=== PATIENT | male | born 1945 | race Caucasian/White ===

== ENCOUNTER → 2024-01-20 07:24 | Outpatient (REF) | payer MEDICARE, SELFPAY ==
[2024-01-20 08:44] LABS: PSA, Total - Diagnostic 0.57 ng/ml (0.0-4.0)
== END ==
LOC: REG 07:24
PROVIDERS: ATTENDING PHYSICIAN Specialist
DX: C61 Malignant neoplasm of prostate (principal)
CPT/HCPCS: 36415; 84153

== ENCOUNTER → 2024-02-11 09:22 | Outpatient (REF) | payer MEDICARE, SELFPAY ==
[2024-02-11 10:20] LABS: % Basophils 0.6 % (0-2); % Eosinophils 1.4 % (0-6); % Immature Granulocytes 0.3 % (0-0.5); % Lymphocytes 14.9 % (20.5-51.1); % Monocytes 7.2 % (1.7-9.3); % Neutrophils 75.6 % (42.2-75.2); Absolute Basophils 0.1 10^3/uL (0-0.2); Absolute Eosinophils 0.1 10^3/uL (0-0.7); Absolute Lymphocytes 1.3 10^3/uL (1.2-3.4); Absolute Monocytes 0.6 10^3/uL (0.1-0.6); Absolute Neutrophils 6.7 10^3/uL (1.4-6.5); Hematocrit 39.1 % (39.0-52.0); Hemoglobin 13.6 g/dL (13.0-18.0); Mean Corp Hgb Conc. 34.8 g/dL (33.0-37.0); Mean Corpuscular Hgb 31.4 pg (27.0-31.0); Mean Corpuscular Volume 90.3 fL (80.0-94.0); Mean Platelet Volume 10.2 fL (7.4-10.4); Nucleated Red Blood Cells % 0 % (-); Platelet Count 182 10^3/uL (130-400); Red Blood Cell Count 4.33 10^6/uL (4.70-6.10); Red Cell Dist. Width 13.5 % (11.5-14.5); White Blood Cell Count 8.9 10^3/uL (4.8-10.8)
[2024-02-11 12:24] LABS: TSH Reflex To Free T4 1.32 uIU/ml (0.47-4.68)
[2024-02-11 13:56] LABS: ALT (SGPT) 26 U/L (0-50); AST (SGOT) 33 U/L (17-59); Albumin 4.6 g/dl (3.5-5.0); Alkaline Phosphatase 86 U/L (38-126); Blood Urea Nitrogen 31 mg/dl (9-20); Calcium 9.6 mg/dl (8.4-10.2); Carbon Dioxide 23 mmol/L (22-30); Chloride 103 mmol/L (98-107); Glucose 84 mg/dl (70-99); HDL Cholesterol 63 mg/dl; LDL Cholesterol, Calculated 98 mg/dl; Potassium 4.4 mmol/L (3.5-5.1); Sodium 138 mmol/L (135-145); Total Cholesterol 182 mg/dl (50-199); Total Protein 7.1 g/dl (6.3-8.2); Triglyceride 107 mg/dl (10-149); Very Low Density Lipoprotein 21 mg/dl (0-30); eGFR > 60.00
== END ==
LOC: REG 09:22
PROVIDERS: ATTENDING PHYSICIAN Family Medicine
DX: I10 Essential (primary) hypertension (principal); E78.00 Pure hypercholesterolemia, unspecified; E88.819 Insulin resistance, unspecified; R73.01 Impaired fasting glucose
CPT/HCPCS: 36415; 80053; 80061; 83036; 84443; 85025

== ENCOUNTER 2024-02-23 02:57 | Emergency (ER) | payer MEDICARE, SELFPAY ==
[2024-02-23 02:59] VITALS: BP 158/74
[2024-02-23] MEDS: TORADOL 60 MG IM (04:16)
[2024-02-23 04:25] LABS: % Basophils 0.4 % (0-2); % Eosinophils 1.7 % (0-6); % Immature Granulocytes 0.4 % (0-0.5); % Lymphocytes 11.3 % (20.5-51.1); % Monocytes 7.7 % (1.7-9.3); % Neutrophils 78.5 % (42.2-75.2); Absolute Eosinophils 0.2 10^3/uL (0-0.7); Absolute Lymphocytes 1.1 10^3/uL (1.2-3.4); Absolute Monocytes 0.8 10^3/uL (0.1-0.6); Absolute Neutrophils 7.7 10^3/uL (1.4-6.5); Hematocrit 38.9 % (39.0-52.0); Hemoglobin 13.6 g/dL (13.0-18.0); Mean Corpuscular Hgb 31.7 pg (27.0-31.0); Mean Corpuscular Volume 90.7 fL (80.0-94.0); Mean Platelet Volume 10.4 fL (7.4-10.4); Nucleated Red Blood Cells % 0 % (-); Platelet Count 179 10^3/uL (130-400); Red Blood Cell Count 4.29 10^6/uL (4.70-6.10); Red Cell Dist. Width 13.8 % (11.5-14.5); White Blood Cell Count 9.8 10^3/uL (4.8-10.8)
--- NOTE | 2024-02-23 04:37 | ED.GENMED ---
History of Present Illness
General
Chief Complaint: Swelling
Source: patient, spouse and previous radiology exam (Previous left distal fibula ankle fracture with repair February 22, 2014)
Exam Limitations: none
Time Seen by Provider: 02/23/24 03:29
Nursing documentation reviewed up to this point in time: agreed with
Travel History
Have you had any contact with someone who has COVID-19?: No
Do you have any symptoms of coronavirus? Fever > 100 degrees, chills, cough, shortness of breath, sore throat, loss of taste or smell, muscle aches, or headache?: No
History of Present Illness
History of Present Illness:
This is an 79-year-old gentleman who resides at home with his . He has history of hypertension, hyperlipidemia prior history of left distal fibula fracture with fracture repair with plate and screws by Dr. Muro February 2014.
He complains of left medial ankle pain and swelling that began yesterday afternoon, mild at first but progressive throughout the evening and difficulty sleeping tonight due to pain. No insightful injury, he denies fall nor twisting of his ankle.
No history of similar episodes of pain. He has not taken anything for discomfort. He denies fever nor chills. He denies leg pain or knee pain or foot pain. No weakness nor numbness.
He does endorse eating more seafood recently and consumes beer from time to time.
Past History
Past History
ED Past Medical History: Cancer (Prostate cancer), HTN, Hypercholesterolemia and Other (BPH)
ED Past Surgical History: Orthopedic (Left knee replacement 2012. Left distal fibula repair February [address] Muro.) and Urological (Prostate cancer)
Social History
Tobacco: Non-smoker
Alcohol: Occasional
Personal:
Living: with family
Employment: Retired
Family History
Family History: Other (Noncontributory)
Phy Exam
Physical Exam
Physical Exam:
GENERAL: 79-year-old gentleman appears his stated age, bright and alert, pleasant, appears in no acute distress. is accompanying.
EYE: anicteric
NECK: Supple, nontender, no meningismus, no significant adenopathy.
ENT: oral mucosa is moist.
CARDIAC: Regular rate and rhythm. no murmur.
LUNGS: Clear breath sounds bilaterally, no acute respiratory distress, no wheezes/rales/rhonchi
ABDOMEN: Soft, nondistended, without focal tenderness
NEUROLOGICAL: Alert and oriented x3, no focal neuro deficits.
SKIN: Warm and dry, normal color, skin intact. No rash.
MUSCULOSKELETAL: Left ankle has well-healed old surgical incision lateral aspect. There is mild soft tissue swelling about the ankle with minimal erythema medial distal ankle with moderate local tenderness to palpation medial mid ankle. There is
no tenderness to the foot nor lower leg nor knee. There is full ankle range of motion with increased pain with internal and external rotation. Peripheral pulses are full and equal b/l.
PSYCH: Normal and appropriate interaction.
Scores
Heart Failure Risk
Heart Failure Risk Score: Not Applicable
Course
Orders/Labs/Results
Orders:
Orders
02/23/24 03:37
Ankle, left 3 view CR [CR Ankle - Left Min 3 Views ] Urgent
Comment:
Reason For Exam: nontraumatic pain swelling medial ankle
02/23/24 03:52
Ketorolac [Toradol] 60 mg .ROUTE .STK-MED ONE
02/23/24 04:09
Basic Metabolic Panel Urgent
CRP [C-Reactive Protein] Urgent
Complete Blood Count/With Diff Urgent
Sed Rate [Erythrocyte Sed Rate] Urgent
Uric Acid Urgent
02/23/24 04:16
Ketorolac [Toradol] 60 mg IM NOW STA
Abnormal Lab Results
02/23/24
04:09
RBC 4.29 L 10^6/uL
(4.70-6.10)
Hct 38.9 L %
(39.0-52.0)
MCH 31.7 H pg
(27.0-31.0)
Absolute Neuts (auto) 7.7 H 10^3/uL
(1.4-6.5)
Absolute Lymphs (auto) 1.1 L 10^3/uL
(1.2-3.4)
Absolute Monos (auto) 0.8 H 10^3/uL
(0.1-0.6)
Neutrophils % 78.5 H %
(42.2-75.2)
Lymphocytes % 11.3 L %
(20.5-51.1)
BUN 23 H mg/dl
(9-20)
Glucose 112 H mg/dl
(70-99)
02/23/24 04:09
02/23/24 04:09
Vital Signs
Initial and Last Documented VS:
Initial Vital Signs
Temp Pulse Resp BP Pulse Ox
97.8 F 68 22 158/74 100
02/23/24 02:59 02/23/24 02:59 02/23/24 02:59 02/23/24 02:59 02/23/24 02:59
Last Documented Vital Signs
Temp Pulse Resp BP Pulse Ox
97.8 F 63 16 147/72 96
02/23/24 02:59 02/23/24 05:25 02/23/24 05:25 02/23/24 05:25 02/23/24 05:25
MDM/Problems Addressed
Differential Diagnosis Includes:
Concern for acute inflammatory arthropathy such as gout, pseudogout, other consideration is infectious arthropathy. Tenosynovitis, osteoarthritis flare.
Will check labs including inflammatory markers, uric acid and will check left ankle x-ray.
Will medicate for pain with Toradol.
*Radiology
Radiology exam reviewed: preliminary read by ED provider (Left ankle x-ray reveals prior distal fibula fracture repair with intact plate and screws. Mild to moderate DJD. No fracture.)
*Pulse Oximetry
Patient hypoxic: no
*Critical Care Note
Total Time (30-74mins, 75-104mins- exclusive of procedures): Not Applicable
Update Note
Update Note:
02/23/2024 0505 AM
Patient feeling improved after IM dose of Toradol. Resting comfortably.
Thus far labs are reassuring with normal white blood cell count, normal sed rate of 14, CRP less than 5. Uric acid 5.4. Normal renal function.
Left ankle x-ray reveals prior distal fibular fracture repair with plate and screws that appear intact. Mild to moderate DJD but no evidence of fracture.
I suspect acute arthritic flare, likely osteoarthritis, other consideration is inflammatory arthritis such as gout or pseudogout.
Recommend trial of NSAID, elevation, heat with prompt follow-up with PCP versus orthopedist.
Return precautions discussed including onset of fever, worsening pain etc.
ED Attending Note
-
Portions of this chart may have been created with voice recognition software.� Occasional wrong word or��sound alike� substitutions may have occurred due to the inherent limitations of voice recognition software.
Discharge Plan
Departure
Patient Disposition: Home (Routine Discharge)
Date of Disposition: 02/23/24
Time of Disposition: 05:07
Patient with high blood pressure during this ER visit?: No
Condition: Good
Discharge Problem:
Acute inflammatory arthropathy L ankle
Instructions: Gout (DC), Osteoarthritis (DC)
Prescriptions:
New
diclofenac sodium 75 mg tablet,delayed release (DR/EC)
75 mg PO BID PRN (Reason: pain) Qty: 30 0RF
No Action
finasteride 5 MG tablet
5 mg PO DAILY
cholecalciferol (vitamin D3) 1,000 UNIT capsule
1,000 unit PO DAILY
amlodipine 5 mg Tablet
5 mg PO DAILY
tamsulosin 0.4 mg Capsule
0.4 mg PO DAILY
pravastatin 20 mg Tablet
20 mg PO DAILY
Lumigan 0.01 % Drops
1 drp OPHTHALMIC (EYE) QPM
Metamucil 3.4 gram/5.4 gram Powder
1 tsp PO DAILY
Referrals:
Debra No MD [Family Provider] - Call in 1-3 days for appt
Interventions
Interventions:
*Risk Screen - Suicide Last Done: 02/23/24 02:59
*General Assessment Last Done: 02/23/24 03:22
*Neglect/Abuse Screening Last Done: 02/23/24 02:59
ED- Fall Risk Assessment Last Done: 02/23/24 03:22
*ED COVID-19 Vaccine History Last Done: 02/23/24 03:22
*Nursing Disposition Last Done: 02/23/24 05:25
ED- Cardiac Assessment Last Done: 02/23/24 03:22
ED- Pulmonary Assessment Last Done: 02/23/24 03:22
ED-Skin Assessment Last Done: 02/23/24 03:22
Discharge Date and Time
Discharge Date/Time: 02/23/24 05:25
Print Language: CZECH
[2024-02-23 04:43] LABS: C-Reactive Protein < 5.00 mg/L (0.0-10.00)
[2024-02-23 04:49] LABS: Blood Urea Nitrogen 23 mg/dl (9-20); Calcium 9.6 mg/dl (8.4-10.2); Carbon Dioxide 24 mmol/L (22-30); Chloride 106 mmol/L (98-107); Glucose 112 mg/dl (70-99); Potassium 4.5 mmol/L (3.5-5.1); Sodium 136 mmol/L (135-145); Uric Acid 5.4 mg/dl (3.5-8.5); eGFR > 60.00
[2024-02-23 04:58] LABS: Erythrocyte Sed Rate 14 mm/hour (0-20)
[2024-02-23 05:25] VITALS: BP 147/72
== END 2024-02-23 05:25 | disposition home or self-care (01) ==
LOC: EMR 02:57
PROVIDERS: EMERGENCY PHYSICIAN Emergency Medicine; FAMILY PHYSICIAN Family Medicine
DX: M12.872 Other specific arthropathies, not elsewhere classified, left ankle and foot (principal); M19.072 Primary osteoarthritis, left ankle and foot; M25.572 Pain in left ankle and joints of left foot; M25.472 Effusion, left ankle; R26.2 Difficulty in walking, not elsewhere classified; I10 Essential (primary) hypertension; E78.00 Pure hypercholesterolemia, unspecified; N40.0 Benign prostatic hyperplasia without lower urinary tract symptoms; H40.9 Unspecified glaucoma; Z85.46 Personal history of malignant neoplasm of prostate; Z96.652 Presence of left artificial knee joint
CPT/HCPCS: 99284; 96372; 73610; 80048; 84550; 85025; 85652; 86140

== ENCOUNTER → 2024-04-08 06:55 | Outpatient (REF) | payer MEDICARE, SELFPAY ==
[2024-04-08 08:00] LABS: % Basophils 0.3 % (0-2); % Eosinophils 3.4 % (0-6); % Immature Granulocytes 0.3 % (0-0.5); % Lymphocytes 21.1 % (20.5-51.1); % Monocytes 9.2 % (1.7-9.3); % Neutrophils 65.7 % (42.2-75.2); Absolute Eosinophils 0.2 10^3/uL (0-0.7); Absolute Lymphocytes 1.4 10^3/uL (1.2-3.4); Absolute Monocytes 0.6 10^3/uL (0.1-0.6); Absolute Neutrophils 4.5 10^3/uL (1.4-6.5); Hematocrit 40.4 % (39.0-52.0); Hemoglobin 13.6 g/dL (13.0-18.0); Mean Corp Hgb Conc. 33.7 g/dL (33.0-37.0); Mean Corpuscular Hgb 31.3 pg (27.0-31.0); Mean Corpuscular Volume 93.1 fL (80.0-94.0); Nucleated Red Blood Cells % 0 % (-); Red Blood Cell Count 4.34 10^6/uL (4.70-6.10); Red Cell Dist. Width 13.2 % (11.5-14.5); White Blood Cell Count 6.8 10^3/uL (4.8-10.8)
[2024-04-08 08:07] LABS: Erythrocyte Sed Rate 13 mm/hour (0-20)
[2024-04-08 09:01] LABS: ALT (SGPT) 42 U/L (0-50); AST (SGOT) 46 U/L (17-59); Albumin 4.3 g/dl (3.5-5.0); Alkaline Phosphatase 82 U/L (38-126); Blood Urea Nitrogen 23 mg/dl (9-20); Calcium 9.5 mg/dl (8.4-10.2); Carbon Dioxide 23 mmol/L (22-30); Chloride 103 mmol/L (98-107); Glucose 99 mg/dl (70-99); HDL Cholesterol 36 mg/dl; LDL Cholesterol, Calculated 72 mg/dl; Potassium 4.2 mmol/L (3.5-5.1); Sodium 139 mmol/L (135-145); Total Bilirubin 0.6 mg/dl (0.2-1.3); Total Cholesterol 128 mg/dl (50-199); Total Protein 6.9 g/dl (6.3-8.2); Triglyceride 101 mg/dl (10-149); Very Low Density Lipoprotein 20 mg/dl (0-30); eGFR > 60.00
[2024-04-08 10:24] LABS: Uric Acid 6.5 mg/dl (3.5-8.5)
[2024-04-08 10:46] LABS: C-Reactive Protein < 5.00 mg/L (0.0-10.00)
== END ==
LOC: REG 06:55
PROVIDERS: ATTENDING PHYSICIAN Family Medicine
DX: M25.572 Pain in left ankle and joints of left foot (principal); E78.00 Pure hypercholesterolemia, unspecified
CPT/HCPCS: 36415; 80053; 80061; 84550; 85025; 85652; 86140

== ENCOUNTER 2024-04-10 16:55 | Observation (INO) | payer MEDICARE, SELFPAY ==
[2024-04-10] VITALS (20 sets, daily range): BP systolic 129–166; BP diastolic 58–142; PULSE 56–89; O2SAT 97; BMI 26.5; BMI 31.9
--- NOTE | 2024-04-10 07:49 | ED.GENMED ---
History of Present Illness
General
Chief Complaint: Dizziness
Source: patient
Exam Limitations: none
Time Seen by Provider: 04/10/24 08:05
Nursing documentation reviewed up to this point in time: agreed with
Travel History
Have you had any contact with someone who has COVID-19?: No
Do you have any symptoms of coronavirus? Fever > 100 degrees, chills, cough, shortness of breath, sore throat, loss of taste or smell, muscle aches, or headache?: No
History of Present Illness
History of Present Illness:
79-year-old male with history of HTN, HLD, prostate cancer status postradiation presents stating at 530 this morning he got out of bed and within 1/2-hour had a gradual onset of dizziness, nausea, feeling imbalanced and had to hold on to things. did
have 2 episodes diarrhea this a.m. Had headache on arrival but that has dissipated.
Denies fever/chills, CP, SOB. Denies abdominal pain. Denies weakness or numbness in extremities, no recent trauma. Not anticoagulated
Flew back from [place] 9 days ago. Had URI, vomiting and diarrhea for 2 days there. Had decreased hearing for a few days after the flight but this is gone.
PCP recently increased his Rosuvastatin and Rocklatan
Past History
Past History
ED Past Medical History: Cancer (Prostate cancer), HTN, Hypercholesterolemia and Other (BPH)
ED Past Surgical History: Orthopedic (Left knee replacement 2012. Left distal fibula repair February [address] Muro.) and Urological (Prostate cancer)
Social History
Tobacco: Non-smoker
Alcohol: Occasional
Personal:
Living: with family
Employment: Retired
Family History
Family History: Other (Noncontributory)
Phy Exam
Physical Exam
Physical Exam:
GENERAL: No acute distress. A&Ox3.
CONSTITUTIONAL: Afebrile.
EYES: PERRL, conjunctivae normal
Neck: Supple
ENMT: moist mucus membranes, Pharynx nl
RESPIRATORY: Regular respirations, nonlabored, lungs clear.
CARDIOVASCULAR: Regular rate and rhythm, no murmurs, no rubs.
GI: Soft, nontender, normal BS
MUSCULOSKELETAL: Moves with ease. Well perfused.
SKIN: Warm, dry, pink
PSYCH: Normal mood and affect. Well kept, interactive and appropriate
NEUROLOGIC: Awake, alert and oriented. No focal neurological deficits
Course
Orders/Labs/Results
Orders:
Orders
04/10/24 Breakfast
Cholesterol Lowering
At Your Request: Full Participation
Does patient need a safe tray?: No
Cholesterol Lowering: Sodium, 2 Gram
04/10/24 07:19
Electrocardiogram (*1) Urgent
Reason for Study: Vertigo / Dizzy
EKG- Treatment ONCE
04/10/24 08:04
Complete Blood Count/With Diff Urgent
Comprehensive Metabolic Panel Urgent
TSH Reflex To Free T4 Urgent
Troponin I Urgent
04/10/24 08:19
CT Head W/o Iv Contrast Urgent
Comment:
Reason For Exam: dizziness, nausea
04/10/24 10:22
Ondansetron Injectable [Zofran] 4 mg IV NOW STA
Physical Therapy Consult [Pt Eval And Treat] Urgent
Treatment: Vestibular evaluation
Activity Level: As Tolerated
04/10/24 10:35
Urinalysis Reflex To Culture Urgent
Date Specimen was Collected: 04/10/24
Time Specimen was Collected: 10:35
04/10/24 11:33
diazePAM [Valium Injection] 5 mg IV NOW STA
04/10/24 14:39
Meclizine [Antivert] 25 mg PO NOW STA
diazePAM [Valium Injection] 2 mg IV NOW STA
04/10/24 16:26
Admit/Transfer Patient As Directed
Co-Sign Provider:
Level of Care: Observation services
Assign to:: Telemetry
Physician / Group: marie
Diagnosis: BPPV
Reason for Telemetry: Other
Other Reason for Telemetry: BPPV
Date to Stop Telemetry: 04/12/24
Time to Stop Telemetry: 11:00
04/10/24 16:27
Code Status As Directed
Resuscitation Status: Full Code
04/10/24 18:04
Acetaminophen [Tylenol] 650 mg PO Q4HPRN PRN
Bisacodyl [Dulcolax] 10 mg RECTAL [id number] PRN
Docusate W/Senna [Senokot-S] 1 tablet PO BIDPRN PRN
Enoxaparin Sodium [Lovenox] 40 mg SC QPM
Polyethylene Glycol Powder [Miralax] 17 grams PO DAILYPRN PRN
04/10/24 18:04
NEUROLOGY CONSULT Routine
Consulting Provider: Marlon Archer
Was physician already notified: Yes
Activity As Directed
Activity Level: As Tolerated
Vital Signs As Directed
Frequency: Per unit guidelines
DX Deep Vein Thrombosis Video Routine
04/10/24 18:15
Psyllium [Metamucil, Konsyl] 1 packet PO QPM
04/10/24 22:00
netarsudil-latanoprost [Rocklatan] 1 drop BOTH EYES HS
04/10/24 23:00
Meclizine [Antivert] 25 mg PO Q8HPRN PRN
04/11/24 05:25
Complete Blood Count/No Diff IN AM
04/11/24 08:00
Amlodipine [Norvasc] 5 mg PO DAILY
Finasteride [Proscar] 5 mg PO DAILY
Tamsulosin [Flomax] 0.4 mg PO DAILY
04/12/24 11:00
DC Protocol for Telemetry ONCE
Abnormal Lab Results
04/10/24 04/10/24
08:04 10:35
RBC 4.29 L 10^6/uL
(4.70-6.10)
MCH 31.5 H pg
(27.0-31.0)
MPV 10.5 H fL
(7.4-10.4)
Abs Immat Gran (auto) 0.1 H 10^3/uL
(0-0.05)
Immature Gran % 0.7 H %
(0-0.5)
Lymphocytes % 17.3 L %
(20.5-51.1)
Glucose 121 H mg/dl
(70-99)
AST 60 H U/L
(17-59)
ALT 70 H U/L
(0-50)
Urine Ketones 1+ A
(Negative)
04/10/24 08:04
04/10/24 08:04
Vital Signs
Initial and Last Documented VS:
Initial Vital Signs
Temp Pulse Resp BP Pulse Ox
97.7 F 57 22 156/63 100
04/10/24 07:31 04/10/24 07:31 04/10/24 07:31 04/10/24 07:31 04/10/24 07:31
Last Documented Vital Signs
Temp Pulse Resp BP Pulse Ox
98.4 F 59 17 98/79 98
04/11/24 15:00 04/11/24 15:00 04/11/24 15:00 04/11/24 15:00 04/11/24 15:00
MDM/Problems Addressed
Differential Diagnosis Includes:
BPPV, vestibular neuritis, CVA
MDM/Problems Addressed:
79-year-old male with history of HTN, HLD, prostate cancer status postradiation presents stating at 530 this morning he got out of bed and within 1/2-hour had a gradual onset of dizziness, nausea, feeling imbalanced and had to hold on to things. did
have 2 episodes diarrhea this a.m. Had headache on arrival but that has dissipated.
Denies fever/chills, CP, SOB. Denies abdominal pain. Denies weakness or numbness in extremities, no recent trauma. Not anticoagulated
Flew back from [place] 9 days ago. Had URI, vomiting and diarrhea for 2 days there. Had decreased hearing for a few days after the flight but this is gone.
PCP recently increased his Rosuvastatin and Rocklatan
UpToDate review: Not likely from medication increase Rocklatan does not list as a side effect, only 4% people reported dizziness on Rosuvastating
10:30 AM:
CBC unremarkable
CMP unremarkable
UA negative
Head CT negative
11:30 AM
Physical therapy in doing vestibular evaluation.
Acutely symptomatic when laid flat. Immediately becomes severely dizzy. Turning head to left and right severe dizziness, no nystagmus.
Out of bed and ambulated to the bathroom and back with normal gait. When he is up and ambulating he is asymptomatic.
Told P/T he fell in [place], he tripped forward injuring his left shoulder and his left knee, denies hitting his head. He had a little bit of left-sided neck pain for 2 days afterwards but this is totally subsided
1:20 PM
After given IV Valium and Zofran, feeling better
2:20 PM:
In to reevaluate patient. He still gets significantly dizzy when laid flat or turning head from [id number] while laying flat. Not as bad as previously when physical therapy was then but still significant
I will trial another dose of Valium, give meclizine and reevaluate
4:00 PM
In to reevaluate. After second dose of Valium and a dose of Meclizine, no improvement, cannot lay flat or rotate head while laying flat without significant dizziness and nausea.
Plan: Admit to hospitalist for intractable Dizziness and nausea
*EKG
Interpreted by ED Provider?: Yes
EKG Intrepretation Date: 04/10/24
Interpretation: normal
Rate: normal
Rhythm: sinus
Kanab: normal axis
Interval: normal interval
QRS Pattern: normal QRS
Ischemia: no ischemia
*Critical Care Note
Total Time (30-74mins, 75-104mins- exclusive of procedures): Not Applicable
ED Attending Note
-
Portions of this chart may have been created with voice recognition software.� Occasional wrong word or��sound alike� substitutions may have occurred due to the inherent limitations of voice recognition software.
Discharge Plan
Departure
Patient Disposition: Admit
Date of Disposition: 04/10/24
Time of Disposition: 15:57
Presentation/result/management discussed w/ accepting MD/DO: Hospitalist
Condition: Fair
Discharge Problem:
Intractable dizziness
Interventions
Interventions:
*Risk Screen - Suicide Last Done: 04/10/24 08:04
*General Assessment Last Done: 04/10/24 08:04
*Neglect/Abuse Screening Last Done: 04/10/24 08:04
ED- Fall Risk Assessment Last Done: 04/10/24 08:04
*ED COVID-19 Vaccine History Last Done: 04/10/24 07:41
*Nursing Disposition Last Done: 04/10/24 17:32
ED- Neurological Assessment Last Done: 04/10/24 08:04
ED- Cardiac Assessment Last Done: 04/10/24 08:04
ED Swallowing Screen Last Done: 04/10/24 08:04
Discharge Date and Time
Discharge Date/Time: 04/10/24 18:39
[2024-04-10 08:23] LABS: % Basophils 0.3 % (0-2); % Eosinophils 1.8 % (0-6); % Immature Granulocytes 0.7 % (0-0.5); % Lymphocytes 17.3 % (20.5-51.1); % Monocytes 7.7 % (1.7-9.3); % Neutrophils 72.2 % (42.2-75.2); Absolute Eosinophils 0.1 10^3/uL (0-0.7); Absolute Immature Granulocytes 0.1 10^3/uL (0-0.05); Absolute Lymphocytes 1.3 10^3/uL (1.2-3.4); Absolute Monocytes 0.6 10^3/uL (0.1-0.6); Absolute Neutrophils 5.5 10^3/uL (1.4-6.5); Hematocrit 39.1 % (39.0-52.0); Hemoglobin 13.5 g/dL (13.0-18.0); Mean Corp Hgb Conc. 34.5 g/dL (33.0-37.0); Mean Corpuscular Hgb 31.5 pg (27.0-31.0); Mean Corpuscular Volume 91.1 fL (80.0-94.0); Mean Platelet Volume 10.5 fL (7.4-10.4); Nucleated Red Blood Cells % 0 % (-); Platelet Count 180 10^3/uL (130-400); Red Blood Cell Count 4.29 10^6/uL (4.70-6.10); Red Cell Dist. Width 13.1 % (11.5-14.5); White Blood Cell Count 7.6 10^3/uL (4.8-10.8)
[2024-04-10 08:40] LABS: ALT (SGPT) 70 U/L (0-50); AST (SGOT) 60 U/L (17-59); Alkaline Phosphatase 99 U/L (38-126); Blood Urea Nitrogen 20 mg/dl (9-20); Calcium 9.2 mg/dl (8.4-10.2); Carbon Dioxide 25 mmol/L (22-30); Chloride 105 mmol/L (98-107); Estimated Creatinine Clearance 72 ml/min; Glucose 121 mg/dl (70-99); Potassium 3.8 mmol/L (3.5-5.1); Sodium 139 mmol/L (135-145); Total Bilirubin 0.9 mg/dl (0.2-1.3); Total Protein 6.4 g/dl (6.3-8.2); eGFR > 60.00
[2024-04-10 08:50] LABS: Troponin I < 0.012 ng/ml
[2024-04-10] MEDS: ZOFRAN 4 MG IV (10:34)
[2024-04-10 10:50] LABS: Urine Albumin Negative (Neg - Trace); Urine Bilirubin Negative (Negative); Urine Character Clear (Clear); Urine Color Straw; Urine Glucose Negative (Negative); Urine Ketone 1+ (Negative); Urine Leukocyte Negative (Negative); Urine Nitrite Negative (Negative); Urine Occult Blood Negative (Negative); Urine Urobilinogen Negative (Neg - 1+)
--- NOTE | 2024-04-10 11:31 | EDRN ---
physical therapy currently at the pts bedside
[2024-04-10] MEDS: VALIUM INJECTION 5 MG IV (11:44)
--- NOTE | 2024-04-10 14:34 | EDRN ---
this RN ambulated the pt per the providers request, the pt was able to ambulate independently with no issues, this RN notified Iza Henry NP
[2024-04-10] MEDS: VALIUM INJECTION 2 MG IV (14:47)
[2024-04-10] MEDS: ANTIVERT 25 MG PO (14:47)
--- NOTE | 2024-04-10 16:06 | HPS.HSE ---
Addendum entered and electronically signed by Kevin Marquez MD 04/10/24 17:20:
severe intractable dizziness onset this morning
Had traveled to [place], but back in states 3 weeks
Dizziness is worse when laying flat, no orthostatic symptoms
Lungs clear
CV reg
Ext no edema
Imp: acute intractable dizziness
essential HTN
P:neuro consult
MRI if neuro believes appropriate
full code
Original Note:
Family Physician
-
Family Physician: Debra No MD
Chief Complaint
-
Dizziness
History of Present Illness
79-year-old with past medical history for prostate cancer, hypertension, hyperlipidemia, BPH presented to us with dizziness when laying flat. He feels the room is spinning. The symptoms started this morning. Patient denied any headache. Patient
feels nauseous when sitting. Denied vomiting. Patient had 2 episodes of watery diarrhea this morning. Patient denied abdominal pain. Patient able to walk without any problem. Patient denied fever, chills, chest pain, short of breath. Patient
denied dysuria hematuria.
Head CT with no acute findings. Admitting for further management
Medical History
Past Medical History
Past Medical History: Reports Other
Additional Past Medical History:
Prostate cancer
Hypertension
Hyperlipidemia
BPH
Past Surgical History: Reports Other
Additional Past Surgical History:
Left knee replacement
Left distal fib repair
Social History
Tobacco: Non-smoker
Alcohol: Occasional
Drug: None
Personal:
Living: With Family
Family History
Family History: Not pertinent
Allergies / Home Medications
Allergies reflects when Allergies were last updated in [facility].
Home Medications with original date entered in [facility]
Allergy/Medication List:
Allergies
Allergy/AdvReac Type Severity Reaction Status Date / Time
No Known Allergies Allergy Verified 04/10/24 07:42
Home Medications
cholecalciferol (vitamin D3) 25 mcg (1,000 unit) capsule 1,000 unit PO QPM Supplement 09/15/13
finasteride 5 mg tablet 5 mg PO DAILY prostate issue 09/15/13
amlodipine 5 mg tablet 5 mg PO DAILY Blood Pressure 02/23/24
pravastatin 20 mg tablet 40 mg PO QPM High Cholesterol 02/23/24
psyllium husk 3.4 gram/5.4 gram oral powder (Metamucil) 1 tsp PO QPM Gastrointestinal Issue 02/23/24
tamsulosin 0.4 mg capsule 0.4 mg PO DAILY Urinary Issue 02/23/24
netarsudil 0.02 %-latanoprost 0.005 % eye drops (Jeromelatan) 1 drp BOTH EYES HS Eye Condition 04/10/24
vit C 250 mg-vit E 90 mg-zinc 40 mg-copper 1 ab-kexasm-qduftu capsule (PreserVision AREDS-2) 1 tab PO BID Supplement 04/10/24
Review of Systems
-
Constitutional: Reports No Symptoms
EENT: Reports No Symptoms
Respiratory: Reports No Symptoms
Cardiac: Reports No Symptoms
Abdomen/GI: Reports No Symptoms
: Reports No Symptoms
Musculoskeletal: Reports No Symptoms
Skin: Reports No Symptoms
Neurological: Reports Dizzy
Endocrine: Reports No Symptoms
Hematologic/Lymphatic: Reports No Symptoms
Psych: Reports No Symptoms
Physical Exam
Vital Signs
Vital Signs
Temp Pulse Resp BP Pulse Ox
98.5 F 85 16 136/81 99
04/10/24 14:35 04/10/24 14:35 04/10/24 14:35 04/10/24 14:35 04/10/24 14:35
Physical Exam
General: Well Developed, Well Nourished and No Apparent Distress
HEENT: NormoCephalic, Moist mucous membranes and Atraumatic
Respiratory: Clear
Cardiac: S1/S2 and Regular Rhythm; No Murmur or Rub
GI: Soft, Non Tender, Non Distended and Normal Bowel Sounds; No Organomegaly
Rectal: Deferred by Provider
Musculoskeletal: No Clubbing, No Cyanosis and No Edema
Skin: No Rash
Neuro: AO x 3 and Nonfocal/grossly intact
Psych: Calm
Laboratory Results
-
04/10/24 08:04
04/10/24 08:04
Laboratory Results
Total Bilirubin 0.9 mg/dl (0.2-1.3) 04/10/24 08:04
AST 60 U/L (17-59) H 04/10/24 08:04
ALT 70 U/L (0-50) H 04/10/24 08:04
Alkaline Phosphatase 99 U/L (38-126) 04/10/24 08:04
Troponin I < 0.012 ng/ml 04/10/24 08:04
Data Reviewed
-
CT Scan: Report Reviewed by me
Lab Data: Labs Reviewed by me
Impression/Plan
-
# Intractable dizziness/nausea likely BPPV
-Received Valium and Zofran, meclizine in ER
-Head CT with no acute abnormality
-EKG normal sinus rhythm
-PT/OT
-Obtain orthostatics
-meclizine continued
-neurology consulted
# Diarrhea likely viral
-Continue to monitor
-Obtain stool cultures if continues to have diarrhea
# Hypertension urgency
-Hypertension blood pressure elevated in ER
-Norvasc continued
# BPH
-Finasteride continued
-Flomax continued
# Hyperlipidemia
-Statin continued
# DVT prophylaxis
-Lovenox subcu
# CODE STATUS
-Full code
[2024-04-10] MEDS: LOVENOX 40 MG SC (18:34)
[2024-04-10] MEDS: METAMUCIL, KONSYL 1 PACKET PO (18:34)
[2024-04-11 03:00] VITALS: BP 132/68
[2024-04-11 06:01] LABS: Hematocrit 36.9 % (39.0-52.0); Hemoglobin 12.9 g/dL (13.0-18.0); Mean Corpuscular Hgb 31.7 pg (27.0-31.0); Mean Corpuscular Volume 90.7 fL (80.0-94.0); Mean Platelet Volume 10.7 fL (7.4-10.4); Platelet Count 198 10^3/uL (130-400); Red Blood Cell Count 4.07 10^6/uL (4.70-6.10); Red Cell Dist. Width 13.3 % (11.5-14.5); White Blood Cell Count 7.9 10^3/uL (4.8-10.8)
[2024-04-11 06:17] LABS: ALT (SGPT) 55 U/L (0-50); AST (SGOT) 38 U/L (17-59); Albumin 3.8 g/dl (3.5-5.0); Alkaline Phosphatase 80 U/L (38-126); Blood Urea Nitrogen 21 mg/dl (9-20); Carbon Dioxide 26 mmol/L (22-30); Chloride 106 mmol/L (98-107); Direct Bilirubin 0.3 mg/dl (0.0-0.4); Estimated Creatinine Clearance 69 ml/min; Glucose 95 mg/dl (70-99); Potassium 4.3 mmol/L (3.5-5.1); Sodium 140 mmol/L (135-145); Total Bilirubin 0.9 mg/dl (0.2-1.3); Total Protein 6.3 g/dl (6.3-8.2); eGFR > 60.00
[2024-04-11 07:00] VITALS: BP 153/64
[2024-04-11] MEDS: NORVASC 5 MG PO (07:49)
[2024-04-11] MEDS: FLOMAX 0.400000000000000022 MG PO (07:49)
[2024-04-11] MEDS: PROSCAR 5 MG PO (07:50)
--- NOTE | 2024-04-11 08:26 | CON.NEURO ---
Neuro Assessment/Plan
Assessment
IMPRESSIONS/RECOMMENDATIONS:
Abrupt onset dizziness, worse with lying flat, improved with sitting up
With mildly abnormal orthostatics (elevated HR by 20 BPM lying to standing)
May be due to benign paroxysmal positional vertigo (BPPV) with possible vestibular migraine
Plan
continue physical therapy, may be continued as outpatient
offer Meclizine routinely
add aspirin 81 mg due to silent ischemic lesions on MRI of brain
check outpatient MRA head and neck
continue pravastatin 20 mg routinely
Will continue to follow patient. Thank you.
Consultation
Order
Date of Consultation: 04/11/24
Requesting Provider: Hospitalist
Reason for Consult: Dizziness
Subjective/Objective
Subjective Data
Date of Service: April 11, 2024
Right-Handed
Presented to this hospital with acute onset of vertigo.
Started 1 day ago with sudden onset. Initially unable to lie down with nausea and diarrhea. Room was spinning, problem with reclining has now resolved. Headache started hours later after onset of symptoms. Headache was across forehead resolved after
6-7 hours, mild, no photo-, no phonophobia. Patient also had visual changes with [id number]-xd-jydiz.
No prior episodes.
Was vacationing in [place] for 2 weeks, tripped without head injury (more than 9 days ago). Returned on April 01, 2024.
Patient also returned with a respiratory infection, not COVID-19, by report.
Objective Data
Vital Signs
Temp Pulse Resp BP Pulse Ox
36.9 C 53 16 153/64 98
04/11/24 03:00 04/11/24 07:49 04/11/24 03:00 04/11/24 07:49 04/11/24 03:00
Lab Results
04/11/24 05:25
04/11/24 05:25
Sodium 140 mmol/L (135-145) 06/01/24 05:25
Potassium 4.3 mmol/L (3.5-5.1) 04/11/24 05:25
BUN 21 mg/dl (9-20) H 04/11/24 05:25
Glucose 95 mg/dl (70-99) 04/11/24 05:25
Calcium 9.0 mg/dl (8.4-10.2) 04/11/24 05:25
Patient Allergies
No Known Allergies Allergy (Verified 04/10/24 07:42)
Review of Systems
-
History Source: Patient and Family
All other systems: Reviewed and negative
EENT: Hearing Loss (Chronic); Negative Decreased Vision or Tinnitis
Musculoskeletal: Negative Back Pain or Neck Pain
Neuro: Headache; Negative Dizzy or Other
Physical Exam
-
General: No Apparent Distress and Appears Stated Age
Eyes: Round OU, [place] Conjunctivae and No Ptosis; Negative Able to visualize OU
HEENT: Anicteric and Moist Mucous Membranes
Neck: Full Range of Motion
Respiratory: No Dyspnea
Cardiac: No JVD
GI: Non-distended
Skin: Unremarkable
Extremities: No Clubbing, No Cyanosis and No Edema
Psych: Intact Judgement/Insight
Extended Neurological Exam
Mood & Affect: Mood Unremarkable and Affect Unremarkable
Attention Span & Concentration: Awake, Alert, Interactive and Mild Difficulty with 2 Step Request
Memory: Unremarkable
Tremor: Hand Tremor Absent and Head Tremor Absent
Speech: Quality Unremarkable and Quantity Unremarkable
Cranial Nerve II: Left Eye: Pupillary Reactivity Unremarkable and Visual Whiet Intact; Negative Pupillary Size Unremarkable (pin-point)
Cranial Nerve II: Right Eye: Pupillary Reactivity Unremarkable and Visual White Intact; Negative Pupillary Size Unremarkable (pin-point)
Cranial Nerves III, IV, : Extraocular Movement: Extraocular Movement Full in all Directions
Cranial Nerve V: Facial Sensation: Facial Sensation Unremarkable to Cold
Cranial Nerve VII: Facial Symmetry: Normal Facial Symmetry
Cranial Nerve VIII: Hearing: Unremarkable Hearing to Normal Conversational Volume
Cranial Nerves IX, X: Palate Movement: Palate Elevation Symmetric
Cranial Nerve XI: Shoulder Shrug: Unremarkable
Cranial Nerve XII: Tongue Protusion: Midline
Muscle Strength, Overall: Full Throughout
Muscle Bulk & Tone: Bulk Unremarkable and Tone Unremarkable
Pronator Drift: No Drift in Upper Extremities
Deep Tendon Reflexes: Unremarkable Throughout
Touch Sensation: Unremarkable
Coordination: Uohouh-xlzf-mnedjg Testing Unremarkable
Babinski Sign: Absent Bilaterally
Data Reviewed
-
CT Head: Report Reviewed
MRI Head: Image Reviewed
Orthostatic Testing: Ordered and Report Reviewed
Labs: Report Reviewed
Reviewed with: Physician [employer] Vehicle Supervisor, Patient and Family
Old Records: Summarized
Medications
-
Active Medications
Generic Name Dose Route Start Last Admin
Trade Name Freq PRN Reason Stop Dose Admin
Acetaminophen 650 mg 04/10/24 18:04
Acetaminophen 325 Mg Tablet PO 05/08/24 18:03
Q4HPRN PRN
mild pain/BANSAL/temp> 100.4F
Amlodipine Besylate 5 mg 04/11/24 08:00 04/11/24 07:49
Amlodipine 5 Mg Tablet PO 05/09/24 07:59 5 mg
DAILY BEENA Administration
Bisacodyl 10 mg 04/10/24 18:04
Bisacodyl 10 Mg Rectal Suppository RECTAL 05/08/24 18:03
[id number] PRN
constipation
Enoxaparin Sodium 40 mg 04/10/24 18:04 04/10/24 18:34
Enoxaparin Sodium 40 Mg/0.4 Ml Syringe SC 05/08/24 18:03 40 mg
QPM BEENA Administration
Finasteride 5 mg 04/11/24 08:00 04/11/24 07:50
Finasteride 5 Mg Tablet PO 05/09/24 07:59 5 mg
DAILY BEENA Administration
Meclizine HCl 25 mg 04/10/24 23:00
Meclizine 25 Mg Tablet PO 05/08/24 22:59
Q8HPRN PRN
dizzy
Non-Formulary Medication 1 drop 04/10/24 22:00
Netarsudil-Latanoprost [Rocklatan] BOTH EYES 05/08/24 21:59
HS BEENA
Polyethylene Glycol 17 grams 04/10/24 18:04
Polyethylene Glycol Powder 17 Grams Packet PO 05/08/24 18:03
DAILYPRN PRN
constipation
Pravastatin Sodium 40 mg 04/11/24 18:00
Pravastatin 40 Mg Tablet PO 05/09/24 17:59
QPM BEENA
Psyllium Hydrophilic Mucilloid 1 packet 04/10/24 18:15 04/10/24 18:34
Psyllium Packet PO 05/08/24 18:14 1 packet
QPM BEENA Administration
Senna/Docusate Sodium 1 tablet 04/10/24 18:04
Docusate W/Senna ([place]-Colace) Tablet PO 05/08/24 18:03
BIDPRN PRN
constipation
Sodium Chloride 0 flush 04/10/24 19:00
Sodium Chloride 0.9% (Flush) Syringe IV 05/08/24 18:59
PER PROTOCOL BEENA
Tamsulosin HCl 0.4 mg 04/11/24 08:00 04/11/24 07:49
Tamsulosin 0.4 Mg Capsule PO 05/09/24 07:59 0.4 mg
DAILY BEENA Administration
Home Medications
�Medication �Instructions �Recorded
cholecalciferol (vitamin D3) 25 1,000 unit PO QPM Supplement 09/15/13
mcg (1,000 unit) capsule
finasteride 5 mg tablet 5 mg PO DAILY prostate issue 09/15/13
amlodipine 5 mg tablet 5 mg PO DAILY Blood Pressure 02/23/24
pravastatin 20 mg tablet 40 mg PO QPM High Cholesterol 02/23/24
psyllium husk 3.4 gram/5.4 gram 1 tsp PO QPM Gastrointestinal Issue 02/23/24
oral powder (Metamucil)
tamsulosin 0.4 mg capsule 0.4 mg PO DAILY Urinary Issue 02/23/24
netarsudil 0.02 %-latanoprost 1 drp BOTH EYES HS Eye Condition 04/10/24
0.005 % eye drops ([place])
vit C 250 mg-vit E 90 mg-zinc 40 1 tab PO BID Supplement 04/10/24
mg-copper 1 [id number]-[id number]
capsule (PreserVision AREDS-2)
Past History
Past History
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
ED Past Surgical History: Orthopedic (Left knee replacement 2012. Left distal fibula repair February [address] Muro. Left ankle repair 2013), Urological (Prostate cancer) and Other (Ulcerated cornea repair 2016, bilateral cataract extractions)
Social History
Tobacco: Non-smoker
Alcohol: Occasional
Personal:
Living: with family
Employment: Retired
Family History
Family History: Other (Reviewed and noncontributory)
[2024-04-11 11:00] VITALS: BP 140/67; BP 141/65; BP 143/70; PULSE 55; PULSE 58; PULSE 66
[2024-04-11] MEDS: LOW STRENGTH ASPIRIN 81 MG PO (11:23)
[2024-04-11 12:07] VITALS: BP 154/60; BP 159/68; PULSE 57; O2SAT 98
[2024-04-11 15:00] VITALS: BP 98/79
--- NOTE | 2024-04-11 15:31 | W.PN.HOSP.TC ---
Today's Communication/Plan
-
dc to home
Assessment / Plan
Assessment / Plan
# Intractable dizziness/nausea likely BPPV
-Received Valium and Zofran, meclizine in ER and is actually better currently
-Head CT with no acute abnormality
-EKG normal sinus rhythm
-PT/OT
-Obtain orthostatics
-meclizine continued
-neurology consulted, input appreciated
MRI: No evidence of acute intracranial abnormality.
Incidental note of partially empty sella.
Mild to moderate atrophy. Mild to moderate T2 and FLAIR white matter hyperintensities, commonly seen with aging and usually attributed to small vessel ischemic disease.
# Diarrhea likely viral
-Continue to monitor
-Obtain stool cultures if continues to have diarrhea
denies an issue today
# Hypertension urgency
-Hypertension blood pressure elevated in ER
-Norvasc continued
# BPH
-Finasteride continued
-Flomax continued
# Hyperlipidemia
-Statin continued
# DVT prophylaxis
-Lovenox subcu
# CODE STATUS
-Full code
dc to home
see dictated note
reviewed with Dr. Hayward who cleared pt for dc
Anticipated Discharge: Today
Subjective/Interval History
-
Date of Service: April 11, 2024
Feeling much better, currently denies dizziness
Objective Data
-
Labs:
Laboratory Results
04/11/24
05:25
WBC 7.9
Hgb 12.9 L
Hct 36.9 L
Plt Count 198
Sodium 140
Potassium 4.3
Chloride 106
Carbon Dioxide 26
BUN 21 H
Creatinine 0.9
Glucose 95
Calcium 9.0
Total Bilirubin 0.9
AST 38
ALT 55 H
Alkaline Phosphatase 80
Vital Signs:
Vital Signs
Temp Pulse Resp BP Pulse Ox
97.9 F 55 18 140/67 99
04/11/24 11:00 04/11/24 11:00 04/11/24 11:00 04/11/24 11:00 04/11/24 11:00
I&O
04/10/24 04/11/24 04/12/24
06:59 06:59 06:59
Intake Total 1120 / 1120
Output Total 400 / 400
Balance 720 / 720
Review of Systems
-
History Source: Patient and Family ( at bedside)
Constitutional: Reports No Symptoms
EENT: Reports No Symptoms Reported
Respiratory: Reports No Symptoms
Cardiac: Reports No Symptoms
Abdomen/GI: Reports No Symptoms
Musculoskeletal: Reports No Symptoms
Physical Exam
-
General: Well Developed, Well Nourished and No Apparent Distress
HEENT: Moist Mucous Membranes and Other (no nystagmus)
Respiratory: Clear to Auscultation; Negative Wheezes, Rales or Rhonchi
Cardiac: Regular Rhythm and S1/S2
GI: Soft, Nontender and Nondistended
--- NOTE | 2024-04-11 15:36 | CM ---
Reviewed chart, met with patient to obtain information for assessment. Patient stated that he is from Independent living at [facility]. He lives with his spouse. He described himself as independent with his ADLs and personal care as well as
dressing and bathing. He ambulates independently but does have a walker and a w/c. Patient is able to do ingot header, cook, clean and do laundry. He drives and can get himself to his appointments and do all of his own shopping.
Patient hasn't had VN services in the past.
He has not been to a SNF.
Patient has a prescription plan and uses [facility] in [place] for all of his medications.
His PCP is, Pernell Feldman.
Provided patient with obs letter, reviewed and is on chart.
Plan: Case management will continue to follow and assist with discharge planning. Patient will return home when medically cleared.
--- NOTE | 2024-04-11 15:56 | W.DS.TRANS ---
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
-
Discharge Instructions:
Discharge Diagnosis/Procedures Intractable Dizziness
Diet Regular
Activity No strenuous activity
Driving Restrictions Not until seen by your Dr
Bathing Restrictions None
Others Tests MRA of head and neck
Instructions:
Stand-Alone Forms:
Changes to Home Medications: Yes
Discharge Medications:
DC Medications w/original date entered in [facility]
cholecalciferol (vitamin D3) 25 mcg (1,000 unit) capsule 1,000 unit PO QPM Supplement 09/15/13
finasteride 5 mg tablet 5 mg PO DAILY prostate issue 09/15/13
amlodipine 5 mg tablet 5 mg PO DAILY Blood Pressure 02/23/24
pravastatin 20 mg tablet 40 mg PO QPM High Cholesterol 02/23/24
psyllium husk 3.4 gram/5.4 gram oral powder (Metamucil) 1 tsp PO QPM Gastrointestinal Issue 02/23/24
tamsulosin 0.4 mg capsule 0.4 mg PO DAILY Urinary Issue 02/23/24
netarsudil 0.02 %-latanoprost 0.005 % eye drops ([place]) 1 drp BOTH EYES HS Eye Condition 04/10/24
vit C 250 mg-vit E 90 mg-zinc 40 mg-copper 1 [id number]-niybbc capsule (PreserVision AREDS-2) 1 tab PO BID Supplement 04/10/24
aspirin 81 mg tablet,delayed release 81 mg PO DAILY #90 tabs 04/11/24
meclizine 12.5 mg tablet 12.5 mg PO QID #30 tabs 04/11/24
Home Medication Changes
Aspirin 81 mg daily
Antivert on a tapering schedule
Pending Results: No
== END 2024-04-11 17:14 | disposition home or self-care (01) ==
LOC: 3 WEST ACU 16:55
PROVIDERS: Registered Nurse; ADMITTING PHYSICIAN Internal Medicine; EMERGENCY PHYSICIAN Emergency Medicine; FAMILY PHYSICIAN Family Medicine; OTHER PHYSICIAN Psychiatry & Neurology Neurology
DX: R42 Dizziness and giddiness (principal); I10 Essential (primary) hypertension; E78.00 Pure hypercholesterolemia, unspecified; R11.2 Nausea with vomiting, unspecified; I67.82 Cerebral ischemia; M54.2 Cervicalgia; R29.6 Repeated falls; N40.0 Benign prostatic hyperplasia without lower urinary tract symptoms; I16.0 Hypertensive urgency; R19.7 Diarrhea, unspecified; R51.9 Headache, unspecified; Z85.46 Personal history of malignant neoplasm of prostate; Z92.3 Personal history of irradiation; Z96.652 Presence of left artificial knee joint; Z87.19 Personal history of other diseases of the digestive system
CPT/HCPCS: 70450; 70551; 80053; 81003; 82248; 84443; 84484; 85025; 85027; 93005; 96374; 96375; 96376; 97116; 99285; G0378

== ENCOUNTER → 2024-05-13 16:19 | Outpatient (REF) | payer MEDICARE, SELFPAY | LOC: PAVMRI 16:19 | PROVIDERS: ATTENDING PHYSICIAN Family Medicine; REFERRING PHYSICIAN Psychiatry & Neurology Neurology | DX: R42 Dizziness and giddiness (principal); R90.89 Other abnormal findings on diagnostic imaging of central nervous system | CPT/HCPCS: 70544; 70547 ==

== ENCOUNTER → 2024-07-17 07:15 | Outpatient (REF) | payer MEDICARE, SELFPAY ==
[2024-07-17 08:57] LABS: ALT (SGPT) 21 U/L (0-50); AST (SGOT) 28 U/L (17-59); Albumin 4.7 g/dl (3.5-5.0); Alkaline Phosphatase 83 U/L (38-126); Blood Urea Nitrogen 28 mg/dl (9-20); Calcium 9.7 mg/dl (8.4-10.2); Carbon Dioxide 29 mmol/L (22-30); Chloride 102 mmol/L (98-107); Glucose 102 mg/dl (70-99); HDL Cholesterol 60 mg/dl; LDL Cholesterol, Calculated 103 mg/dl; Potassium 4.2 mmol/L (3.5-5.1); Sodium 142 mmol/L (135-145); Total Cholesterol 181 mg/dl (50-199); Total Protein 7.1 g/dl (6.3-8.2); Triglyceride 94 mg/dl (10-149); Very Low Density Lipoprotein 18 mg/dl (0-30); eGFR > 60.00
== END ==
LOC: REG 07:15
PROVIDERS: ATTENDING PHYSICIAN Family Medicine
DX: E78.00 Pure hypercholesterolemia, unspecified (principal)
CPT/HCPCS: 36415; 80053; 80061

== ENCOUNTER → 2024-10-01 09:14 | Outpatient (REF) | payer MEDICARE, SELFPAY ==
[2024-10-01 09:53] LABS: % Basophils 0.4 % (0-2); % Eosinophils 0.8 % (0-6); % Immature Granulocytes 0.3 % (0-0.5); % Lymphocytes 16.1 % (20.5-51.1); % Monocytes 7.6 % (1.7-9.3); % Neutrophils 74.8 % (42.2-75.2); Absolute Eosinophils 0.1 10^3/uL (0-0.7); Absolute Lymphocytes 1.5 10^3/uL (1.2-3.4); Absolute Monocytes 0.7 10^3/uL (0.1-0.6); Absolute Neutrophils 7.1 10^3/uL (1.4-6.5); Hematocrit 41.7 % (39.0-52.0); Hemoglobin 13.7 g/dL (13.0-18.0); Mean Corp Hgb Conc. 32.9 g/dL (33.0-37.0); Mean Corpuscular Hgb 31.3 pg (27.0-31.0); Mean Corpuscular Volume 95.2 fL (80.0-94.0); Nucleated Red Blood Cells % 0 % (-); Platelet Count 168 10^3/uL (130-400); Red Blood Cell Count 4.38 10^6/uL (4.70-6.10); Red Cell Dist. Width 13.5 % (11.5-14.5); White Blood Cell Count 9.5 10^3/uL (4.8-10.8)
[2024-10-01 11:08] LABS: TSH Reflex To Free T4 1.12 uIU/ml (0.47-4.68)
== END ==
LOC: REG 09:14
PROVIDERS: ATTENDING PHYSICIAN Family Medicine
DX: Z00.00 Encounter for general adult medical examination without abnormal findings (principal); Z79.899 Other long term (current) drug therapy
CPT/HCPCS: 36415; 84443; 85025

== ENCOUNTER → 2025-01-22 07:16 | Outpatient (REF) | payer MEDICARE, SELFPAY ==
[2025-01-22 08:04] LABS: % Basophils 0.5 % (0-2); % Immature Granulocytes 0.4 % (0-0.5); % Lymphocytes 18.9 % (20.5-51.1); % Monocytes 8.7 % (1.7-9.3); % Neutrophils 69.5 % (42.2-75.2); Absolute Eosinophils 0.2 10^3/uL (0-0.7); Absolute Lymphocytes 1.4 10^3/uL (1.2-3.4); Absolute Monocytes 0.7 10^3/uL (0.1-0.6); Absolute Neutrophils 5.3 10^3/uL (1.4-6.5); Hematocrit 40.5 % (39.0-52.0); Hemoglobin 13.7 g/dL (13.0-18.0); Mean Corp Hgb Conc. 33.8 g/dL (33.0-37.0); Mean Corpuscular Hgb 31.8 pg (27.0-31.0); Mean Platelet Volume 10.6 fL (7.4-10.4); Nucleated Red Blood Cells % 0 % (-); Platelet Count 168 10^3/uL (130-400); Red Blood Cell Count 4.31 10^6/uL (4.70-6.10); Red Cell Dist. Width 13.6 % (11.5-14.5); White Blood Cell Count 7.6 10^3/uL (4.8-10.8)
[2025-01-22 08:49] LABS: ALT (SGPT) 21 U/L (0-50); AST (SGOT) 24 U/L (17-59); Albumin 4.9 g/dl (3.5-5.0); Alkaline Phosphatase 85 U/L (38-126); Blood Urea Nitrogen 24 mg/dl (9-20); Calcium 9.9 mg/dl (8.4-10.2); Carbon Dioxide 30 mmol/L (22-30); Chloride 103 mmol/L (98-107); Glucose 105 mg/dl (70-99); HDL Cholesterol 62 mg/dl; LDL Cholesterol, Calculated 81 mg/dl; Potassium 4.6 mmol/L (3.5-5.1); Sodium 142 mmol/L (135-145); Total Bilirubin 1.3 mg/dl (0.2-1.3); Total Cholesterol 158 mg/dl (50-199); Total Protein 7.2 g/dl (6.3-8.2); Triglyceride 77 mg/dl (10-149); Very Low Density Lipoprotein 15 mg/dl (0-30); eGFR > 60.00
[2025-01-22 09:08] LABS: PSA, Total - Diagnostic 0.58 ng/ml (0.0-4.0); TSH Reflex To Free T4 1.46 uIU/ml (0.47-4.68)
[2025-01-22 09:12] LABS: Glycohemoglobin (HgbA1c) 5.9 % (4.0-5.6)
[2025-01-22 09:43] LABS: Folate 12.9 ng/ml (2.76-20); Vitamin B12 239 pg/ml (239-931)
== END ==
LOC: REG 07:16
PROVIDERS: ATTENDING PHYSICIAN Specialist; FAMILY PHYSICIAN Family Medicine
DX: C61 Malignant neoplasm of prostate (principal); D75.89 Other specified diseases of blood and blood-forming organs; I10 Essential (primary) hypertension; E78.00 Pure hypercholesterolemia, unspecified; E88.819 Insulin resistance, unspecified; R73.01 Impaired fasting glucose
CPT/HCPCS: 36415; 80053; 80061; 82607; 82746; 83036; 84153; 84443; 85025

== ENCOUNTER → 2025-07-23 07:15 | Outpatient (REF) | payer MEDICARE, SELFPAY ==
[2025-07-23 08:05] LABS: Blood Urea Nitrogen 25 mg/dl (9-20); Calcium 9.6 mg/dl (8.4-10.2); Carbon Dioxide 30 mmol/L (22-30); Chloride 106 mmol/L (98-107); Glucose 106 mg/dl (70-99); Potassium 5.3 mmol/L (3.5-5.1); Sodium 140 mmol/L (135-145); eGFR > 60.00
[2025-07-23 08:55] LABS: Vitamin B12 882 pg/ml (239-931)
== END ==
LOC: REG 07:15
PROVIDERS: ATTENDING PHYSICIAN Family Medicine
DX: I10 Essential (primary) hypertension (principal); E78.00 Pure hypercholesterolemia, unspecified; Z79.899 Other long term (current) drug therapy; E53.8 Deficiency of other specified B group vitamins
CPT/HCPCS: 36415; 80048; 82607

== ENCOUNTER → 2025-10-19 10:40 | Outpatient (REF) | payer MEDICARE, SELFPAY ==
[2025-10-19 15:02] LABS: Blood Urea Nitrogen 24 mg/dl (9-20); Calcium 9.6 mg/dl (8.4-10.2); Carbon Dioxide 29 mmol/L (22-30); Chloride 103 mmol/L (98-107); Glucose 99 mg/dl (70-99); Potassium 5.0 mmol/L (3.5-5.1); Sodium 138 mmol/L (135-145); eGFR > 60.00
== END ==
LOC: REG 10:40
PROVIDERS: ATTENDING PHYSICIAN Family Medicine
DX: I10 Essential (primary) hypertension (principal)
CPT/HCPCS: 36415; 80048